=== PATIENT | female | born 2005 | race Caucasian/White ===

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

== ENCOUNTER 2024-03-13 12:15 | Outpatient (RCR) | payer OTHER | END 2024-03-17 | LOC: M PT 12:15 | PROVIDERS: ATTEND Orthopaedic Surgery | DX: M25.572 Pain in left ankle and joints of left foot (principal) ==

== ENCOUNTER 2024-04-05 13:00 | Outpatient (RCR) | payer OTHER | END 2024-04-14 | LOC: M PT 13:00 | PROVIDERS: ATTEND Orthopaedic Surgery | DX: M25.572 Pain in left ankle and joints of left foot (principal) ==

== ENCOUNTER → 2024-04-23 | Outpatient (CLI) | payer OTHER ==
[2024-04-23 16:55] LABS: HEMATOCRIT 41.3 % (36.0-47.0); HEMOGLOBIN 13.5 g/dl (12.0-15.5); MEAN CORPUSCULAR HEMOGLOBIN 24.9 pg (27.0-33.0); MEAN CORPUSCULAR HGB CONC 32.7 g/dl (32.0-36.5); MEAN CORPUSCULAR VOLUME 76.1 fl (80.0-96.0); PLATELET COUNT, AUTOMATED 311 10^3/uL (150-450); RED BLOOD COUNT 5.43 10^6/uL (4.00-5.40); WHITE BLOOD COUNT 13.3 10^3/uL (4.0-10.0)
[2024-04-23 17:24] LABS: ALBUMIN 3.4 G/DL (3.2-5.2); ALKALINE PHOSPHATASE 129 U/L (35-104); ALT/SGPT 26 U/L (7.0-40); AST/SGOT 18 U/L (<34); BLOOD UREA NITROGEN 11 MG/DL (9-23); CALCIUM LEVEL 9.4 MG/DL (8.5-10.1); CARBON DIOXIDE LEVEL 25 MMOL/L (20-31); CHLORIDE LEVEL 106 MMOL/L (98-107); CREATININE FOR GFR 0.57 MG/DL (0.55-1.30); GLUCOSE, FASTING 159 MG/DL (60-100); POTASSIUM SERUM 3.9 MMOL/L (3.5-5.1); SODIUM LEVEL 139 MMOL/L (136-145); TOTAL PROTEIN 7.5 G/DL (5.7-8.2)
[2024-04-23 17:26] LABS: THYROID STIMULATING HORMONE 4.691 uIU/ML (0.48-4.17)
== END ==
LOC: M LAB 15:52
PROVIDERS: ATTEND Physician Assistant Surgical
DX: Z01.812 Encounter for preprocedural laboratory examination (principal)

== ENCOUNTER → 2024-06-12 | Outpatient (CLI) | payer OTHER | LOC: M SLEEP 20:00 | PROVIDERS: ATTEND Physician Assistant | DX: R40.0 Somnolence (principal) ==

== ENCOUNTER → 2024-06-15 | Outpatient (CLI) | payer OTHER ==
[2024-06-15 10:29] LABS: BLOOD UREA NITROGEN 13 MG/DL (9-23); CREATININE FOR GFR 0.53 MG/DL (0.55-1.30); GLOMERULAR FILTRATION RATE > 90.0 (>60)
== END ==
LOC: M LAB 09:31
PROVIDERS: ATTEND Psychiatry & Neurology Neurology
DX: I10 Essential (primary) hypertension (principal)

== ENCOUNTER → 2024-06-26 | Outpatient (CLI) | payer OTHER ==
[2024-06-26 15:54] LABS: CHOLESTEROL RISK RATIO 4.44 (<5); HDL CHOLESTEROL 43.9 MG/DL (>40); LDL CHOLESTEROL 107.1 MG/DL (<100); NON-HDL-C 151.1 MG/DL
[2024-06-26 15:56] LABS: TOTAL 25(OH) VITAMIN D 15.8 NG/ML (20.0-100.0)
[2024-06-30 11:12] LABS: ANA SCREEN, IFA NEGATIVE (NEGATIVE)
[2024-06-30 14:19] LABS: LYME TOTAL ANTIBODY CIA <= 0.90 Index (<=0.90)
== END ==
LOC: M LAB 13:10
PROVIDERS: ATTEND Physician Assistant
DX: M25.50 Pain in unspecified joint (principal); M25.60 Stiffness of unspecified joint, not elsewhere classified; E11.9 Type 2 diabetes mellitus without complications; E55.9 Vitamin D deficiency, unspecified

== ENCOUNTER → 2024-06-30 | Outpatient (CLI) | payer OTHER ==
[2024-06-30 12:41] LABS: ALBUMIN 3.6 G/DL (3.2-5.2); ALKALINE PHOSPHATASE 130 U/L (35-104); ALT/SGPT 23 U/L (7.0-40); AST/SGOT 12 U/L (<34); BLOOD UREA NITROGEN 14 MG/DL (9-23); CALCIUM LEVEL 9.6 MG/DL (8.5-10.1); CARBON DIOXIDE LEVEL 25 MMOL/L (20-31); CHLORIDE LEVEL 102 MMOL/L (98-107); CREATININE FOR GFR 0.59 MG/DL (0.55-1.30); GLOMERULAR FILTRATION RATE > 90.0 (>60); GLUCOSE, FASTING 241 MG/DL (60-100); HEMATOCRIT 40.7 % (36.0-47.0); HEMOGLOBIN 12.7 g/dl (12.0-15.5); MEAN CORPUSCULAR HEMOGLOBIN 24.2 pg (27.0-33.0); MEAN CORPUSCULAR HGB CONC 31.2 g/dl (32.0-36.5); MEAN CORPUSCULAR VOLUME 77.7 fl (80.0-96.0); PLATELET COUNT, AUTOMATED 303 10^3/uL (150-450); POTASSIUM SERUM 4.2 MMOL/L (3.5-5.1); RED BLOOD COUNT 5.24 10^6/uL (4.00-5.40); SODIUM LEVEL 138 MMOL/L (136-145); TOTAL PROTEIN 7.3 G/DL (5.7-8.2); WHITE BLOOD COUNT 9.9 10^3/uL (4.0-10.0)
== END ==
LOC: M WUC 10:32
PROVIDERS: ATTEND Physician Assistant
DX: E11.9 Type 2 diabetes mellitus without complications (principal); J45.901 Unspecified asthma with (acute) exacerbation

== ENCOUNTER → 2024-10-21 | Outpatient (CLI) | payer OTHER ==
[~2024-10-21] MED LIST changes: -IBUP-1022 PO; +IBUP600T42 PO
[2024-10-21 13:52] LABS: PLATELET COUNT, AUTOMATED 216 10^3/uL (150-450)
[2024-10-21 14:12] LABS: ESTIMATED AVERAGE GLUCOSE 134.0 MG/DL (60-110)
[2024-10-21 14:24] LABS: ALT/SGPT 45 U/L (7.0-40); AST/SGOT 38 U/L (<34); CALCIUM LEVEL 9.2 MG/DL (8.5-10.1); CARBON DIOXIDE LEVEL 26 MMOL/L (20-31); CHLORIDE LEVEL 107 MMOL/L (98-107); CREATININE FOR GFR 0.49 MG/DL (0.55-1.30); GLOMERULAR FILTRATION RATE > 90.0 (>60); IRON (FE) 32 UG/DL (50-170); MAGNESIUM LEVEL 1.9 MG/DL (1.8-2.4); PERCENT SATURATION 10.6 % (13.2-45.0); PHOSPHORUS LEVEL 2.9 MG/DL (2.5-4.9); POTASSIUM SERUM 3.0 MMOL/L (3.5-5.1); SODIUM LEVEL 146 MMOL/L (136-145)
[2024-10-21 14:26] LABS: TOTAL 25(OH) VITAMIN D 20.0 NG/ML (20.0-100.0)
[2024-10-21 14:27] LABS: VITAMIN B12 LEVEL 337 PG/ML (211-911)
[2024-10-26 18:53] LABS: 25-HYDROXY VITAMIN D2 < 8 pg/mL; 25-HYDROXY VITAMIN D3 44 pg/mL; VITAMIN D 1 25 DIHYDROXY 44 pg/mL (18-72)
== END ==
LOC: M LAB 12:03
PROVIDERS: ATTEND Physician Assistant Surgical
DX: Z86.39 Personal history of other endocrine, nutritional and metabolic disease (principal); Z98.84 Bariatric surgery status; K91.2 Postsurgical malabsorption, not elsewhere classified; E55.9 Vitamin D deficiency, unspecified

== ENCOUNTER → 2024-11-05 | Outpatient (CLI) | payer OTHER | LOC: M SLEEP 20:00 | PROVIDERS: ATTEND Physician Assistant | DX: G47.33 Obstructive sleep apnea (adult) (pediatric) (principal); I49.9 Cardiac arrhythmia, unspecified ==

== ENCOUNTER → 2025-01-27 | Outpatient (CLI) | payer OTHER ==
[2025-01-27 15:35] LABS: BASO # 0.0 10^3/uL (0.0-0.2); BASO % 0.5 % (0.0-1.0); EOS # 0.1 10^3/uL (0.0-0.5); EOS % 1.2 % (0.0-3.0); LYMPH # 2.9 10^3/uL (1.5-5.0); LYMPH % 35.3 % (24.0-44.0); MONO # 0.4 10^3/uL (0.0-0.8); MONO % 4.9 % (2.0-8.0); NEUTROPHILS # 4.8 10^3/uL (1.5-8.5); NEUTROPHILS % 58.0 % (36.0-66.0); PLATELET COUNT, AUTOMATED 156 10^3/uL (150-450)
[2025-01-27 16:01] LABS: CALCIUM LEVEL 8.8 MG/DL (8.5-10.1); CARBON DIOXIDE LEVEL 24 MMOL/L (20-31); CHLORIDE LEVEL 109 MMOL/L (98-107); CREATININE FOR GFR 0.50 MG/DL (0.55-1.30); GLOMERULAR FILTRATION RATE > 90.0 (>60); MAGNESIUM LEVEL 1.8 MG/DL (1.8-2.4); PHOSPHORUS LEVEL 3.9 MG/DL (2.5-4.9); POTASSIUM SERUM 3.8 MMOL/L (3.5-5.1); SODIUM LEVEL 144 MMOL/L (136-145)
== END ==
LOC: M LAB 13:41
PROVIDERS: ATTEND Nurse Practitioner Family
DX: I49.8 Other specified cardiac arrhythmias (principal); R00.1 Bradycardia, unspecified

== ENCOUNTER → 2025-01-27 | Outpatient (CLI) | payer OTHER ==
[2025-01-27 15:34] LABS: PLATELET COUNT, AUTOMATED 239 10^3/uL (150-450)
[2025-01-27 15:54] LABS: ESTIMATED AVERAGE GLUCOSE 111.0 MG/DL (60-110)
[2025-01-27 16:05] LABS: VITAMIN B12 LEVEL 311 PG/ML (211-911)
[2025-01-27 16:09] LABS: ALT/SGPT 25 U/L (7.0-40); AST/SGOT 27 U/L (<34); CALCIUM LEVEL 8.9 MG/DL (8.5-10.1); CARBON DIOXIDE LEVEL 21 MMOL/L (20-31); CHLORIDE LEVEL 108 MMOL/L (98-107); CREATININE FOR GFR 0.47 MG/DL (0.55-1.30); GLOMERULAR FILTRATION RATE > 90.0 (>60); IRON (FE) 40 UG/DL (50-170); MAGNESIUM LEVEL 1.8 MG/DL (1.8-2.4); PERCENT SATURATION 11.5 % (13.2-45.0); PHOSPHORUS LEVEL 3.8 MG/DL (2.5-4.9); POTASSIUM SERUM 3.8 MMOL/L (3.5-5.1); SODIUM LEVEL 142 MMOL/L (136-145)
[2025-01-27 16:34] LABS: TOTAL 25(OH) VITAMIN D 29.8 NG/ML (20.0-100.0)
== END ==
LOC: M LAB 13:44
PROVIDERS: ATTEND Physician Assistant Surgical
DX: Z98.84 Bariatric surgery status (principal); K21.9 Gastro-esophageal reflux disease without esophagitis; E55.9 Vitamin D deficiency, unspecified; K91.2 Postsurgical malabsorption, not elsewhere classified; Z86.39 Personal history of other endocrine, nutritional and metabolic disease; I49.8 Other specified cardiac arrhythmias; R00.1 Bradycardia, unspecified

== ENCOUNTER → 2025-02-05 | Outpatient (CLI) | payer OTHER | LOC: M EKG 13:25 | PROVIDERS: ATTEND Nurse Practitioner Family | DX: I49.8 Other specified cardiac arrhythmias (principal) ==